=== PATIENT | male | born 1990 | race Caucasian/White ===

== ENCOUNTER → 2017-03-09 | Outpatient (CLI) | payer SELFPAY | END | disposition disaster alternative care site (69) | LOC: GRAD 07:34 | DX: S89.91XA Unspecified injury of right lower leg, initial encounter (principal); S83.411A Sprain of medial collateral ligament of right knee, initial encounter; S83.511A Sprain of anterior cruciate ligament of right knee, initial encounter; S80.11XA Contusion of right lower leg, initial encounter; M12.561 Traumatic arthropathy, right knee; M25.461 Effusion, right knee; M25.361 Other instability, right knee; M25.061 Hemarthrosis, right knee; X58.XXXA Exposure to other specified factors, initial encounter ==